=== PATIENT | male | born 1980 | race Caucasian/White ===

== ENCOUNTER 2022-09-25 08:03 | Emergency (ER) | payer BC, OTHER ==
[2022-09-25 08:33] VITALS: BP 139/86; PULSE 94; RESP 20; TEMP 98.6; BMI 34.9
[2022-09-25] MEDS ORDERED: IBUPROFEN 600 MG TABLET (FP) PO ONE (08:36)
[2022-09-25 09:02] LABS: THROAT:GRP A STREP NOT DETECTED (NOTDETECTED)
[2022-09-25] MEDS ORDERED: IBUPROFEN 400 MG TABLET (FP) PO ONE (09:14)
== END 2022-09-25 09:34 | disposition home or self-care (01) ==
LOC: JER 08:03
DX: J02.9 Acute pharyngitis, unspecified (principal); R19.7 Diarrhea, unspecified; R50.9 Fever, unspecified; M79.10 Myalgia, unspecified site; R10.13 Epigastric pain; R51.9 Headache, unspecified; Z20.822 Contact with and (suspected) exposure to COVID-19
CPT/HCPCS: 0241U-QW; 76705-TC; 87651; 99284-25